=== PATIENT | female | born 1970 | race African-American/Black ===

== ENCOUNTER 2017-11-04 07:23 | Day surgery (SDC) | payer OTHER ==
[2017-10-30 11:56] VITALS: BMI 34.0
--- NOTE | 2017-11-04 09:17 | HP ---
Admitting History and Physical - Admission Chief Complaint: Prolonged and heavy menses History of Present Illness: 47 yo with h/o menorrhagia is pre op for D&C Hysteroscopy. History Source: Patient Limitations to Obtaining History: No Limitations - Past Medical History ...LMP: 09/13/17 ...: No - Past Surgical History Past Surgical History: Yes: None - Smoking History Smoking history: Never smoked - Alcohol/Substance Use Hx Alcohol Use: No History of Substance Use: reports: None Home Medications - Allergies Allergies/Adverse Reactions: Allergies Allergy/AdvReac Type Severity Reaction Status Date / Time No Known Allergies Allergy Verified 11/04/17 08:04 - Home Medications Home Medications: Ambulatory Orders Ascorbic Acid [Vitamin C] 500 mg PO DAILY 10/30/17 Calcium Carbonate [Calcium] 500 mg PO DAILY 10/30/17 Ferrous Sulfate 325 mg PO DAILY 10/30/17 Simvastatin 10 mg PO DAILY 10/30/17 Family Disease History - Family Disease History Family History: Unremarkable Review of Systems - Review of Systems Constitutional: reports: No Symptoms Eyes: reports: No Symptoms HENT: reports: No Symptoms Neck: reports: No Symptoms Cardiovascular: reports: No Symptoms Respiratory: reports: No Symptoms Gastrointestinal: reports: No Symptoms Genitourinary: reports: No Symptoms Breasts: reports: No Symptoms Reported Musculoskeletal: reports: No Symptoms Neurological: reports: No Symptoms Endocrine: reports: No Symptoms Hematology/Lymphatic: reports: No Symptoms Psychiatric: reports: No Symptoms Pain Intensity: 0 Physical Examination Vital Signs: Vital Signs Temperature 98.5 F 11/04/17 08:00 Pulse Rate 65 11/04/17 08:00 Respiratory Rate 20 11/04/17 08:00 Blood Pressure 125/68 11/04/17 08:00 O2 Sat by Pulse Oximetry (%) 99 11/04/17 07:59 Constitutional: Yes: Well Nourished Eyes: Yes: Conjunctiva Clear HENT: Yes: Atraumatic Neck: Yes: Supple Cardiovascular: Yes: Regular Rate and Rhythm Respiratory: Yes: Regular Gastrointestinal: Yes: Normal Bowel Sounds Breast(s): Yes: WNL Musculoskeletal: Yes: WNL Extremities: Yes: WNL Neurological: Yes: Alert, Oriented ...Motor Strength: WNL Psychiatric: Yes: Alert, Oriented Problem List - Problems (1) Menorrhagia Code(s): N92.0 - EXCESSIVE AND FREQUENT MENSTRUATION WITH REGULAR CYCLE Qualifiers: Menorrahagia type: with regular cycle Qualified Code(s): N92.0 - Excessive and frequent menstruation with regular cycle Assessment/Plan Menorrhagia Pre op for D&C Hysteroscopy Consent signed Anesthesia to see patient
[2017-11-04] MEDS ORDERED: MIDAZOLAM HCL 2 MG/2 ML SINGLE DOSE VIAL ONE (09:34)
[2017-11-04] MEDS ORDERED: SUCCINYLCHOLINE CHLORIDE 200 MG/10 ML VIAL ONE (09:39)
[2017-11-04] MEDS ORDERED: PROPOFOL 20 ML ONE (09:39)
[2017-11-04] MEDS ORDERED: LIDOCAINE HCL 2% JELLY (5 ML/TUBE) ONE (10:01)
[2017-11-04] MEDS ORDERED: KETOROLAC TROMETHAMINE 30 MG/1 ML VIAL ONE (10:01)
[2017-11-04] MEDS ORDERED: LIDOCAINE HCL/PF 2% SDV 5ML VIAL ONE (10:01)
[2017-11-04] MEDS ORDERED: DEXAMETHASONE SOD PHOSPHATE 4 MG/1 ML VIAL ONE (10:01)
--- NOTE | 2017-11-04 10:01 | OP ---
Operative Note - Note: Operative Date: 11/04/17 Pre-Operative Diagnosis: Menorrhagia Operation: D&C Hysteroscopy Post-Operative Diagnosis: Same as Pre-op Surgeon: Delilah Brunson Anesthesia: General Specimens Removed: Endometrial curettings Estimated Blood Loss (mls): 5 Operative Report Dictated: Yes
[2017-11-04] MEDS ORDERED: oxyCODONE HCL 5 MG TABLET PO PRN (10:24)
[2017-11-04] MEDS ORDERED: ONDANSETRON 4 MG/2 ML VIAL IVPUSH PRN (10:24)
[2017-11-04] MEDS ORDERED: PROMETHAZINE HCL 25 MG/1 ML VIAL IVPUSH PRN (10:24)
[2017-11-04] MEDS ORDERED: LACTATED RINGERS SOLUTION 1,000 ML IV SCH (10:30)
--- NOTE | 2017-11-04 10:38 | OP ---
DATE OF OPERATION: 11/04/2017 PREOPERATIVE DIAGNOSIS: Menorrhagia. POSTOPERATIVE DIAGNOSIS: Menorrhagia. PROCEDURE: Dilatation and curettage, hysteroscopy. SURGEON: Delilah Brunson MD ANESTHESIA: General. COMPLICATIONS: None. ESTIMATED BLOOD LOSS: 5 mL. DESCRIPTION OF PROCEDURE: Patient was taken to the operating room, where general anesthesia was administered. Patient was then placed in lithotomy position. She was then prepped and draped in proper sterile fashion. A weighted speculum was placed in the vagina. The anterior lip of the cervix was grasped with a single-tooth tenaculum. Then, the uterus was sounded to 8 cm. Then, the 5-mm hysteroscope was then gently introduced into the uterine cavity. Then, the sharp curettage was then performed. Then, when finished, the instruments were removed. The patient was taken out of lithotomy position. She was taken to PACU in stable condition. PATHOLOGY: Endometrial curettings. David ALDRICH/[id number]
[2017-11-04 11:03] VITALS: TEMP 97.8
[2017-11-04 19:22] VITALS: BP 120/70; PULSE 64
--- NOTE | 2017-11-05 17:29 | PATH ---
Surgical Pathology Report Patient Name: ADRIANNE WILKERSON [facility]. Rec. #: [id number] /Age/Gender: 1970 (Age: 47) / F Account: [id number] Location: [facility] SURGICAL Taken: 11/04/2017 Received: 11/04/2017 Reported: 11/05/2017 Physicians: Delilah Brunson M.D. Specimen(s) Received ENDOMETRIAL CURETTINGS Clinical History Menorrhagia, fibroid Final Diagnosis ENDOMETRIAL CURETTINGS: FRAGMENTS OF ENDOMETRIAL TISSUE WITH WEAKLY PROLIFERATIVE/INACTIVE ENDOMETRIAL GLANDS. SEPARATE SMOOTH MUSCLE BUNDLES PRESENT. Electronically Signed Arslan Valerio M.D. Gross Description Received in formalin labeled "endometrial curettings," is a 3.2 x 2.4 x 0.3 cm aggregate of leonard red soft tissue fragments admixed with blood clot. The formalin is filtered and the specimen is entirely submitted in 2 cassettes. /11/04/2017 saudi/11/04/2017
== END 2017-11-04 13:15 | disposition home or self-care (01) ==
LOC: JASU-SURG 07:23
PROVIDERS: ATTEND Obstetrics & Gynecology
PROC: 0UDB7ZX Extraction of Endometrium, Via Natural or Artificial Opening, Diagnostic (ICD-10-PCS; principal; 2017-11-04 09:00)
PROC: 0UJD8ZZ Inspection of Uterus and Cervix, Via Natural or Artificial Opening Endoscopic (ICD-10-PCS; 2017-11-04 09:00)
DX: N92.0 Excessive and frequent menstruation with regular cycle (principal)
CPT/HCPCS: 36415; 84703; 86850; 86900; 86901; 88305-TC